=== PATIENT | male | born 1975 | race Caucasian/White ===

== ENCOUNTER 2016-03-11 17:56 | Emergency (ER) | payer SELFPAY ==
--- NOTE | 2016-03-11 18:02 | ER Document Report ---
ED Medical Screen (RME) - General Stated Complaint: TOOTHACHE Notes: Dental pain for several days is currently being treated by the [facility] I greeted and performed a rapid initial assessment of this patient. Comprehensive ED assessment and evaluation of the patient, analysis of test results and completion of the medical decision making process will be conducted by additional ED providers. TRAVEL OUTSIDE OF THE [place] IN LAST 30 DAYS: No - Related Data Allergies/Adverse Reactions: No Known Allergies Allergy (Verified 12/11/15 14:53) Past Medical History Pulmonary Medical History: Reports: Hx Bronchitis GI Medical History: Reports: Hx Gastroesophageal Reflux Disease Musculoskeltal Medical History: Reports Hx Arthritis - Immunizations Immunizations up to date: Yes Hx Diphtheria, Pertussis, Tetanus Vaccination: Yes Physical Exam - Vital signs Vitals: Temp Pulse Resp BP Pulse Ox 98.0 F 90 20 140/89 H 99 03/11/16 18:00 03/11/16 18:00 03/11/16 18:00 03/11/16 18:00 03/11/16 18:00 Course - Vital Signs Vital signs: Temp Pulse Resp BP Pulse Ox 98.0 F 90 20 140/89 H 99 03/11/16 18:00 03/11/16 18:00 03/11/16 18:00 03/11/16 18:00 03/11/16 18:00
--- NOTE | 2016-03-11 19:08 | ER Document Report ---
HPI - HPI Patient complains to provider of: toothache Pain Level: 4 Context: Patient is a 32-year-old male presents emergency Department complaining of toothache. 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 Patient states that before he has been taking penicillin His teeth pulled. Otherwise he states he has severe tooth ache pain in his had difficulty chewing but is able to swallow. Denies any fevers or chills. - REPRODUCTIVE Reproductive: DENIES: : - DERM Skin Color: Normal Past Medical History - General Information source: Patient - Social History Smoking Status: Current Every Day Smoker Chew tobacco use (# tins/day): No Frequency of alcohol use: Social Drug Abuse: None Family History: Arthritis, CAD, CVA, DM, Hyperlipidemia, Hypertension, Malignancy, Thyroid Disfunction Patient has suicidal ideation: No Patient has homicidal ideation: No Pulmonary Medical History: Reports: Hx Bronchitis Renal/ Medical History: Denies: Hx Peritoneal Dialysis GI Medical History: Reports: Hx Gastroesophageal Reflux Disease Musculoskeltal Medical History: Reports Hx Arthritis - Immunizations Immunizations up to date: Yes Hx Diphtheria, Pertussis, Tetanus Vaccination: Yes Vertical Provider Document - CONSTITUTIONAL Exam Limitations: No Limitations General Appearance: WD/WN, Mild Distress - INFECTION CONTROL TRAVEL OUTSIDE OF THE [place] IN LAST 30 DAYS: No - HEENT HEENT: Atraumatic, Normal ENT Exam, Normocephalic Mouth Diagram: 1 - fractured with erythema and tenderness 2 - gingivitis with dental caries - NECK Neck: Normal Inspection, Supple, Other - no evidence of ludwigs angina - RESPIRATORY Respiratory: Breath Sounds Normal, No Respiratory Distress O2 Sat by Pulse Oximetry: 99 - CARDIOVASCULAR Cardiovascular: Regular Rate, Regular Rhythm, No Murmur Pulses: Normal: Radial - NEURO Level of Consciousness: Awake, Alert, Appropriate Course - Re-evaluation Re-evalutation: 03/11/16 19:06 Patient is evidence of gingivitis around surrounding dental caries and dental fractures. Patient will be discharged home with by mouth penicillin and Percocet and follow-up with his dentist as scheduled for this . - Vital Signs Vital signs: Temp Pulse Resp BP Pulse Ox 98.0 F 90 20 140/89 H 99 03/11/16 18:00 03/11/16 18:00 03/11/16 18:00 03/11/16 18:00 03/11/16 18:00 Discharge - Discharge Clinical Impression: Tooth ache Condition: Good Disposition: HOME, SELF-CARE Instructions: Penicillin V K (OM), Oral Narcotic Medication (OM), Toothache ( OM) Prescriptions: Oxycodone HCl/Acetaminophen [Percocet 5-325 mg Tablet] 1 tab PO Q6H PRN #15 tablet PRN Reason: Penicillin V Potassium [Penicillin Vk 500 mg Tablet] 500 mg PO BID 10 Days
[2016-03-11] MEDS ORDERED: OXYCODONE-ACETAMINOPHEN 5-325 MG TABLET PO ONE (19:09)
[2016-03-11] MEDS ORDERED: PENICILLIN V POTASSIUM 500 MG TABLET PO ONE (19:09)
[2016-03-11 19:29] VITALS: BP 131/90
== END 2016-03-11 19:24 | disposition home or self-care (01) ==
LOC: ER 17:56
DX: K08.9 Disorder of teeth and supporting structures, unspecified (principal); K05.10 Chronic gingivitis, plaque induced; F17.200 Nicotine dependence, unspecified, uncomplicated
CPT/HCPCS: 99282

== ENCOUNTER 2016-07-03 13:31 | Emergency (ER) | payer SELFPAY ==
[2016-07-03 13:35] VITALS: BP 149/104
--- NOTE | 2016-07-03 13:49 | ER Document Report ---
ED General - General Chief Complaint: Rectal Pain Stated Complaint: RECTAL PAIN TRAVEL OUTSIDE OF THE [place] IN LAST 30 DAYS: No - HPI Patient complains to provider of: rectal pain Notes: Patient coming in for evaluation of rectal pain ongoing for the last few days worse today. Patient states never been diagnosed with hemorrhoids before. Patient denies any fevers chills nausea vomiting patient states he did have diarrhea this morning. - Related Data Allergies/Adverse Reactions: No Known Allergies Allergy (Verified 07/03/16 13:42) Past Medical History - Social History Smoking Status: Unknown if Ever Smoked Family History: Arthritis, CAD, CVA, DM, Hyperlipidemia, Hypertension, Malignancy, Thyroid Disfunction Patient has suicidal ideation: No Patient has homicidal ideation: No Pulmonary Medical History: Reports: Hx Bronchitis Renal/ Medical History: Denies: Hx Peritoneal Dialysis GI Medical History: Reports: Hx Gastroesophageal Reflux Disease Musculoskeltal Medical History: Reports Hx Arthritis - Immunizations Immunizations up to date: Yes Hx Diphtheria, Pertussis, Tetanus Vaccination: Yes Review of Systems - Review of Systems Constitutional: No symptoms reported EENT: No symptoms reported Cardiovascular: No symptoms reported Respiratory: No symptoms reported Gastrointestinal: Other - Rectal pain Genitourinary: No symptoms reported Male Genitourinary: No symptoms reported Musculoskeletal: No symptoms reported Skin: No symptoms reported Hematologic/Lymphatic: No symptoms reported Neurological/Psychological: No symptoms reported Physical Exam - Vital signs Vitals: Temp Pulse Resp BP Pulse Ox 97.8 F 79 16 149/104 H 100 07/03/16 13:34 07/03/16 13:34 07/03/16 13:34 07/03/16 13:34 07/03/16 13:34 Interpretation: Normal - General General appearance: Appears well, Alert - HEENT Head: Normocephalic, Atraumatic Eyes: Normal Pupils: PERRL - Respiratory Respiratory status: No respiratory distress Chest status: Nontender Breath sounds: Normal Chest palpation: Normal - Cardiovascular Rhythm: Regular Heart sounds: Normal auscultation Murmur: No - Abdominal Inspection: Normal Distension: No distension Bowel sounds: Normal Tenderness: Nontender Organomegaly: No organomegaly - Rectal Notes: Patient with a hemorrhoid approximately 9 o'clock position nonthrombosed - Back Back: Normal, Nontender - Extremities General upper extremity: Normal inspection, Nontender, Normal color, Normal ROM , Normal temperature General lower extremity: Normal inspection, Nontender, Normal color, Normal ROM , Normal temperature, Normal weight bearing. No: Maneul's sign - Neurological Neuro grossly intact: Yes Cognition: Normal Orientation: AAOx4 Adonis Coma Scale Eye Opening: Spontaneous [place] Coma Scale Verbal: Oriented Adonis Coma Scale Motor: Obeys Commands [place] Coma Scale Total: 15 Speech: Normal Motor strength normal: LUE, RUE, LLE, RLE Sensory: Normal - Psychological Associated symptoms: Normal affect, Normal mood - Skin Skin Temperature: Warm Skin Moisture: Dry Skin Color: Normal Course - Re-evaluation Re-evalutation: 07/03/16 13:57 Examination is consistent with a hemorrhoid. Patient will be discharged home follow-up with primary care physician and GI. - Vital Signs Vital signs: Temp Pulse Resp BP Pulse Ox 97.8 F 79 16 149/104 H 100 07/03/16 13:34 07/03/16 13:34 07/03/16 13:34 07/03/16 13:34 07/03/16 13:34 Discharge - Discharge Clinical Impression: External hemorrhoid Condition: Good Disposition: HOME, SELF-CARE Instructions: Hemorrhoids ([facility]) Additional Instructions: Please apply medications as prescribed. Recommend following up with the GI Dr. provided for further evaluation of your hemorrhoids. Please avoid constipation. Prescriptions: Hydrocortisone/Pramoxine [Analpram Hc 2.5% Cream] 30 gm RC QID #1 cream.appl Lidocaine [Recticare] 30 gm TP Q6 #1 cream..g. Sennosides/Docusate Sodium [Senna-S Tablet] 1 each PO BID #30 tablet Forms: Return to Work Referrals: PEDRO TANG MD [ACTIVE STAFF] - Follow up as needed
== END 2016-07-03 13:47 | disposition home or self-care (01) ==
LOC: ER 13:31
DX: K64.4 Residual hemorrhoidal skin tags (principal); K62.89 Other specified diseases of anus and rectum; R19.7 Diarrhea, unspecified
CPT/HCPCS: 99283

== ENCOUNTER 2017-05-17 16:46 | Emergency (ER) | payer SELFPAY ==
[2017-05-17] MEDS ORDERED: CEPHALEXIN 500 MG CAPSULE PO ONE (17:40)
[2017-05-17] MEDS ORDERED: HYDROCODONE/ACETAMINOPHEN 5-325 MG (6 TAB/ER DISP) PO PRN (17:41)
--- NOTE | 2017-05-17 17:47 | ER Document Report ---
ED Hand/Wrist Injury - General Chief Complaint: Finger Injury Stated Complaint: FINGER INJURY Time Seen by Provider: 05/17/17 17:20 Mode of Arrival: Ambulatory Information source: Patient Notes: 41-year-old male presents to ED for complaint of pain to his left index finger. He states he was helping of friend and accidentally shot himself with a nail gun in the index finger. There is a puncture wound with a very swollen left index finger. He reports he removed the nail himself and the finger bled profusely for a while and since then it has been very swollen and painful. He is alert oriented respirations even and unlabored able to walk with the even steady gait. TRAVEL OUTSIDE OF THE [place] IN LAST 30 DAYS: No - HPI Injury to: Index finger - Left index finger Onset: This afternoon Where: Other - Towels Timing: Still present Quality of pain: Pressure, Sharp, Throbbing Severity: Moderate Pain Level: 4 Context: Other - Accidentally shot himself with a nail gun - Related Data Allergies/Adverse Reactions: No Known Allergies Allergy (Verified 07/03/16 13:42) Past Medical History - General Information source: Patient - Social History Smoking Status: Current Every Day Smoker Cigarette use (# per day): Yes - 10 cigarettes a day Chew tobacco use (# tins/day): No Smoking Education Provided: Yes - 4 minutes Frequency of alcohol use: Rare Drug Abuse: None Occupation: Medical Billing Assistant Lives with: Friend Family History: Arthritis, CAD, CVA, DM, Hyperlipidemia, Hypertension, Malignancy, Thyroid Disfunction Patient has suicidal ideation: No Patient has homicidal ideation: No - Past Medical History Cardiac Medical History: Reports: None Pulmonary Medical History: Reports: Hx Bronchitis EENT Medical History: Reports: None Neurological Medical History: Reports: None Endocrine Medical History: Reports: None Renal/ Medical History: Reports: None Malignancy Medical History: Reports None GI Medical History: Reports: Hx Gastroesophageal Reflux Disease Musculoskeltal Medical History: Reports Hx Arthritis, Reports Hx Musculoskeletal Trauma - Fractured left index finger 05/17/2017 Skin Medical History: Reports None Psychiatric Medical History: Reports: None Traumatic Medical History: Reports: Hx Fractures - Left index finger Infectious Medical History: Reports: None Past Surgical History: Reports: Other - Removal of HPV - Immunizations Immunizations up to date: Yes Hx Diphtheria, Pertussis, Tetanus Vaccination: Yes - 2017 Review of Systems - Review of Systems Constitutional: No symptoms reported EENT: No symptoms reported Cardiovascular: No symptoms reported Respiratory: No symptoms reported Gastrointestinal: No symptoms reported Genitourinary: No symptoms reported Male Genitourinary: No symptoms reported Musculoskeletal: Other - Swelling and pain to the left index finger with a puncture wound through and through the finger from a nail gun nail Skin: Other - Went through puncture wound to the left index finger Hematologic/Lymphatic: No symptoms reported Neurological/Psychological: No symptoms reported -: Yes All other systems reviewed and negative Physical Exam - Vital signs Vitals: Temp Pulse Resp BP Pulse Ox 98.2 F 76 16 135/75 H 100 05/17/17 17:05 05/17/17 17:05 05/17/17 17:05 05/17/17 17:05 05/17/17 17:05 Interpretation: Normal - General General appearance: Appears well, Alert - HEENT Head: Normocephalic, Atraumatic Eyes: Normal Pupils: PERRL - Respiratory Respiratory status: No respiratory distress Chest status: Nontender Breath sounds: Normal Chest palpation: Normal - Cardiovascular Rhythm: Regular Heart sounds: Normal auscultation Murmur: No - Abdominal Inspection: Normal Distension: No distension Bowel sounds: Normal Tenderness: Nontender Organomegaly: No organomegaly - Back Back: Normal, Nontender - Extremities General upper extremity: Normal color General lower extremity: Normal inspection, Nontender, Normal color, Normal ROM , Normal temperature, Normal weight bearing. No: Manuel's sign Shoulder: Normal, Nontender Arm: Normal, Nontender Elbow: Normal, Nontender Forearm: Normal, Nontender Wrist: Normal, Nontender Hand: Tender, Ecchymosis, Swelling, Other - Puncture wound from a nail gun nail. No: Abrasion, Deformity, Dislocation, Instability, Laceration, Nail injury, No evidence of human bite, No evidence of FB, Tendon deficit - Neurological Neuro grossly intact: Yes Cognition: Normal Orientation: AAOx4 Adonis Coma Scale Eye Opening: Spontaneous [place] Coma Scale Verbal: Oriented [place] Coma Scale Motor: Obeys Commands [place] Coma Scale Total: 15 Speech: Normal Motor strength normal: LUE, RUE, LLE, RLE Sensory: Normal - Psychological Associated symptoms: Normal affect, Normal mood - Skin Skin Temperature: Warm Skin Moisture: Dry Skin Color: Normal Course - Re-evaluation Re-evalutation: 05/17/17 18:39 X-ray discussed with patient and reviewed with Dr. morel. Patient was treated with Keflex. Finger was cleaned well with surgical scrub rinsed with saline bacitracin applied to the wound and finger splint applied for a open proximal phalanx fracture. Patient was treated with Keflex and discharged home with a Ida dispense back for his open fracture. Patient was instructed to follow-up with orthopedic surgeon. - Vital Signs Vital signs: Temp Pulse Resp BP Pulse Ox 98 F 75 16 130/70 H 100 05/17/17 18:00 05/17/17 18:00 05/17/17 18:00 05/17/17 18:00 05/17/17 18:00 - Diagnostic Test Radiology reviewed: Image reviewed, Reports reviewed Discharge - Discharge Clinical Impression: Open fracture of phalanx of left index finger Qualifiers: Encounter type: initial encounter Phalanx: proximal Fracture alignment: nondisplaced Qualified Code(s): S62.641B - Nondisplaced fracture of proximal phalanx of left index finger, initial encounter for open fracture Injury by nail gun Qualifiers: Encounter type: initial encounter Qualified Code(s): W29.4XXA - Contact with nail gun, initial encounter Condition: Stable Disposition: HOME, SELF-CARE Additional Instructions: Fractured Finger There is a fracture in your finger. The bone is straight and in good position to heal. The doctor has assessed the seriousness of the fracture and has explained your treatment plan. Usually the finger will be splinted until fracture healing is complete. This is usually about three or four weeks. At that time. The first few days after the injury, the finger should be kept elevated and cold (with ice packs). This decreases the swelling and pain. Your fracture is an open fracture due to a nail gun going through the finger. You need to follow-up with the hand surgeon for this type of fracture. I have placed you on antibiotics as we discussed. You need to clean the finger several times a day with soap and water reapply the bandage and splint. SOAP CLEANSING: Gently wash the wound daily using a mild soap (like Ivory, Phisoderm, Neutrogena). Use warm water, rubbing gently until all debris, ooze, and crusting have been washed from the wound. Allow to dry briefly (about 10 minutes) after cleaning. Repeat this cleansing at least three times a day for the first two days and then once or twice a day. ANTIBIOTIC OINTMENT PROTECTION: Your wounds are such that dressing them is not practical or optional. After cleansing, you should apply a thin coating of antibiotic ointment ( Bacitracin, not Neosporin) to the wounds at least three times daily. This lessens infection risk, and may decrease the amount of scarring. Use a q-tip or dull butter knife, not your finger, to apply this ointment. Any debris or ooze which builds up in the ointment should be gently rubbed off with a sterile gauze pad. Harder crusting may need to be gently scrubbed off with a clean wash cloth with soap and warm water, perhaps applying a warm, wet wash cloth to the wound for ten minutes first. Development of redness, severe itching, or blistering may mean allergy to the ointment. See the doctor. ICE & ELEVATION: Apply ice packs frequently against the painful area. Many different schedules are recommended, such as "20 minutes on, 20 minutes off" or "one hour ice, two hours rest." If you need to work, you may need to go longer between ice treatments. You should plan to have the area ice packed AT LEAST one- fourth of the time. The ice should be applied over the wrap, tape, or splint, or over a layer of cloth -- not directly against the skin. Some ice bags have a built-in cloth and can be put directly on the skin. Your injured part should be elevated as much as possible over the next 48 hours. Try to keep the injury above the level of the heart. Avoid use of the injured area. Elevation and rest will decrease the swelling. USE OF [id number] IBUPROFEN: Ibuprofen (Advil, Nuprin, Medipren, Motrin IB) is a medication for fever and pain control. In addition, it has anti- inflammatory effects which may be beneficial, especially in the treatment of injuries. It's best to take ibuprofen with food. Persons with ulcer disease or allergy to aspirin should notify their physician of this before taking ibuprofen. Ibuprofen can be given every four to six hours, for a total of four doses daily. Age Pain or fever dose Antiinflammatory dose 6-8 yr 200 mg (1 tab) 200 mg (1 tab) 9-11 yr 200 mg (1 tab) 200-400 mg (1-2 tab) 11-14 yr 200-400 mg (1-2 tab) 400 mg (2 tab) 15-adult 400 mg (2 tab) 600 mg (3 tab) ORAL NARCOTIC MEDICATION: You have been given a prescription for pain control. This medication is a narcotic. It's best taken with food, as nausea can result if taken on an empty stomach. Don't operate machinery or drive within six hours of taking this medication. Do not combine this medicine with alcohol, or with any medication which can cause sedation (such as cold tablets or sleeping pills) unless you get permission from the physician. Narcotics tend to cause constipation. If possible, drink plenty of fluids and eat a diet high in fiber and fruits. Please be aware that prescription narcotics also have the potential for abuse. People become addicted to these medications because of the general sense of wellbeing that they induce. This feeling along with a significant reduction in tension, anxiety, and aggression provides a stimulating seductive quality to these drugs. Once your pain is under control, we encourage you to discard your unused narcotics. FOLLOW-UP CARE: If you have been referred to a physician for follow-up care, call the physician s office for an appointment as you were instructed or within the next two days. If you experience worsening or a significant change in your symptoms, notify the physician immediately or return to the Emergency Department at any time for re-evaluation. Prescriptions: Cephalexin Monohydrate [Keflex 500 mg Capsule] 500 mg PO Q6H 5 Days capsule Forms: Smoking Cessation Education, Elevated Blood Pressure Referrals: AMINTA SANCHEZ MD [ASSOCIATE] - Follow up as needed
[2017-05-17 18:01] VITALS: BP 130/70
--- NOTE | 2017-05-17 18:06 | RADIOLOGY REPORT (SQ) ---
EXAM DESCRIPTION: HAND LEFT 3 VIEWS COMPLETED DATE/TIME: 05/17/2017 5:26 pm REASON FOR STUDY: left index finger injury by nail gun COMPARISON: None. EXAM PARAMETERS: NUMBER OF VIEWS: Three views. TECHNIQUE: AP, lateral and oblique radiographic images acquired of the left hand. LIMITATIONS: None. FINDINGS: MINERALIZATION: Normal. BONES: Nondisplaced intra-articular longitudinal fracture of the ulnar aspect of the distal portion o f the proximal phalanx of the left 2nd digit. No other fracture or dislocation. No worrisome bone l esions. JOINTS: No effusions. SOFT TISSUES: Moderate soft tissue swelling. No radiopaque foreign body. OTHER: No other significant finding. IMPRESSION: Nondisplaced intra-articular longitudinal fracture of the ulnar aspect of the distal por tion of the proximal phalanx of the left 2nd digit. No radiopaque foreign body. TECHNICAL DOCUMENTATION: JOB ID: [id number] [place]-72 2010 [employer]- All Rights Reserved Reading location - IP/workstation name: [email or web address]
== END 2017-05-17 18:01 | disposition home or self-care (01) ==
LOC: ER 16:46
DX: S62.641B Nondisplaced fracture of proximal phalanx of left index finger, initial encounter for open fracture (principal); F17.210 Nicotine dependence, cigarettes, uncomplicated; W29.4XXA Contact with nail gun, initial encounter
CPT/HCPCS: 99283; 99406